=== PATIENT | female | born 1990 | race Caucasian/White ===

== ENCOUNTER 2017-04-04 12:59 | Inpatient (IN) | payer BC, OTHER ==
[~2017-04-04] VITALS: Ht 180.3 cm; Wt 67.6 kg
[2017-04-04 00:12] VITALS: BP 109/59
[2017-04-04] MEDS ORDERED: ONDANSETRON ODT 4 MG TAB.RAPDIS SL PRN (14:00)
[2017-04-04] MEDS ORDERED: ONDANSETRON 4 MG/2 ML VIAL IM PRN (14:00)
[2017-04-04] MEDS ORDERED: HYDROXYZINE PAMOATE 25 MG CAPSULE PO PRN (14:00)
[2017-04-04] MEDS ORDERED: MIRALAX 17 GM POWD.PACK PO PRN (14:00)
[2017-04-04] MEDS ORDERED: MAG HYDROX/AL HYDROX/SIMETH 30 ML LIQUID UDC PO PRN (14:00)
[2017-04-04] MEDS ORDERED: IBUPROFEN 600 MG TABLET PO PRN (14:00)
[2017-04-04] MEDS ORDERED: LORAZEPAM 1 MG TABLET PO PRN ×2 (14:00)
[2017-04-04] MEDS ORDERED: LORAZEPAM 2 MG/1 ML VIAL IM PRN (14:00)
[2017-04-04] MEDS ORDERED: DICYCLOMINE HCL 20 MG TABLET PO PRN (14:00)
[2017-04-04] MEDS ORDERED: LOPERAMIDE HCL 2 MG CAPSULE PO PRN ×2 (14:00)
[2017-04-04] MEDS ORDERED: ACETAMINOPHEN 325 MG TABLET PO PRN (14:00)
[2017-04-04] MEDS ORDERED: MAGNESIUM HYDROXIDE 30 ML LIQUID UDC PO PRN (14:00)
[2017-04-04] MEDS ORDERED: BUPRENORPHINE HCL 2 MG TAB.SUBL SL PRN (14:00)
[2017-04-04] MEDS ORDERED: CLONIDINE HCL 0.1 MG TABLET PO PRN (14:00)
--- NOTE | 2017-04-04 15:15 | NUR ---
PRE ADMISSION Pt received in intake and was dropped off by mother from home. Pt alert and oriented to name, place, and time. Perrla. Skin warm and slightly moist to touch. Respirations even and unlabored. Bilateral hand tremors noted slightly. VS: AZ=905/64, P=95 O2=96% @RA, R=16 T=98.0 PAIN=0. Explained unit rules to pt. No distress noted at this time.
--- NOTE | 2017-04-04 15:20 | NUR ---
ADMISSION Pt received in intake and was dropped off by mother from home. Pt alert and oriented to name, place, and time. Perrla. Skin warm and slightly moist to touch. Respirations even and unlabored. Bilateral hand tremors noted slightly. VS: WL=853/64, P=95 O2=96% @RA, R=16 T=98.0 PAIN=0. Explained unit rules to pt. No distress noted at this time. Pt was seen by Dr. Perez at the intake. Pt with episodes of closing her eyes during conversation. Pt states she has her own place, but her boyfriend lives with her. Pt also stated she is thinking about quitting her job because her current job requires her to work late and she is not able to make it sto AA meetings. Oriented pt to room and unit. Bed on lowest position with side rails x2 up for safety. Call light within reach. No distress noted at this time. Substance hx: heroin IV1/2 gmx4 days ONLY, last used 04/04/17 1/2gm morphine IV 125mg x2 months. last used 03/21/17 dilaudid IV 120 mg x1 month. last used 04/03/17 xanax 0.5-2mg daily x 15 years. last used 04/04/17 2mg. medical hx: sz ( 03/30/17) treatment hx: Francisca 10/13/16 and multiple treatments
[2017-04-04 16:00] VITALS: BP 116/64
[2017-04-04] MEDS ORDERED: NAPR500T6 PO (16:50)
[2017-04-04] MEDS ORDERED: ZOLP10TA6 PO (16:50)
[2017-04-04] MEDS ORDERED: LEVO1TBD3 PO (16:50)
[2017-04-04] MEDS ORDERED: TRAZ300T2 PO (16:50)
[2017-04-04] MEDS ORDERED: SERT100T PO (16:50)
[2017-04-04] MEDS ORDERED: CYAN1TAB43 PO (16:50)
[2017-04-04] MEDS ORDERED: CLON0.1T PO (16:50)
[2017-04-04] MEDS ORDERED: VALA100026 PO (16:50)
[2017-04-04] MEDS ORDERED: KETO10TA2 PO (16:50)
[2017-04-04 16:53] LABS: *URINE HCG, QUAL NEGATIVE (NEGATIVE)
[2017-04-04 17:06] LABS: *AMPHETAMINE, URINE NEGATIVE (NEGATIVE); *BARBITURATE, URINE NEGATIVE (NEGATIVE); *CANNABINOID, URINE NEGATIVE (NEGATIVE); *COCCAINE, URINE NEGATIVE (NEGATIVE); *OPIATE, URINE POSITIVE (NEGATIVE); *PHENCYCLIDINE SCREEN,URINE NEGATIVE (NEGATIVE)
[2017-04-04] MEDS: METHOCARBAMOL 750 MG TABLET PO PRN (17:28)
[2017-04-04] MEDS: LORAZEPAM 1 MG TABLET PO SCH ×2 (17:28→23:57)
[2017-04-04] MEDS: LIDOCAINE 5% PATCH TD SCH ×2 (17:29→17:53)
[2017-04-04 17:32] LABS: BASOPHILS % (AUTO) 0.2 % (0.0-2.0); EOSINOPHILS # (AUTO) 0.1 K/uL (0.0-0.7); HEMATOCRIT 33.9 % (37-47); HEMOGLOBIN 11.2 G/DL (12.0-16.0); LYMPHOCYTES # (AUTO) 2.2 K/UL (0.8-4.8); LYMPHOCYTES % (AUTO) 24.2 % (20.5-51.5); MEAN CORPUSCULAR HEMOGLOBIN 29.3 UUG (27.0-31.0); MEAN CORPUSCULAR HGB CONC 33 g/dL (32.0-37.0); MEAN CORPUSCULAR VOLUME 88.6 FL (81.0-99.0); MONOCYTES # (AUTO) 0.7 K/UL (0.1-1.30); MONOCYTES % (AUTO) 7.6 % (0.0-11.0); NEUTROPHILS # (AUTO) 5.9 K/UL (1.8-8.9); PLATELET COUNT (AUTO) 260 K/UL (150-450); RED BLOOD CELL COUNT(AUTO) 3.82 MIL/UL (4.2-5.4); WHITE BLOOD COUNT (AUTO) 8.9 K/UL (4.0-11.2)
[2017-04-04 17:38] LABS: ETHANOL < 3 MG/DL (0-0)
[2017-04-04 17:43] LABS: ALANINE AMINOTRANSFERASE 55 U/L (14-59); ALKALINE PHOSPHATASE 96 U/L (50-136); ASPARTATE AMINOTRANSFERASE 32 U/L (15-37); BILIRUBIN,TOTAL 0.3 mg/dL (0.2-1.0); CARBON DIOXIDE 32 mmol/L (21-32); CHLORIDE 105 mmol/L (98-107); CREATININE 0.7 mg/dL (0.6-1.3); GLUCOSE 106 mg/dL (74-106); MAGNESIUM 1.8 mg/dL (1.8-2.4); POTASSIUM 3.7 mmol/L (3.5-5.1); UREA NITROGEN, BLOOD 10 mg/dL (7-18)
--- NOTE | 2017-04-04 18:27 | NUR ---
END OF SHIFT Pt 26 y/o female admitted for heroin/ morphine/; dilaudid/ xanax dependence. Pt alert and oriented to name, place, and time. Perrla. Skin warm and dry to touch. Respirations even and unlabored. Bilateral hand tremors noted slightly. Pt with periods of closing eyes during conversation, but easily arousable to name. Pt started on a 5 day ativan taper and will start on a 5 day subutex taper on 04/05/17. cows=7 ciwa=3. Bed on lowest position with side rails x2 up for safety. Call light within reach. No distress noted at this time.
--- NOTE | 2017-04-04 19:08 | NUR ---
Start of shift note Received report from day shift nurse. Pt is a 26 yo female, A+Ox4, presenting to [facility] for Opiate/benzo dependence. Pt has Allergies to Avocado, Haldol, and Mushroom, is on Full code status, and on Regular diet. Pt is on Fall and Seizure precautions. Pt has HX of Seizure. Pt is on 5 day Ativan taper started today, tolerated well, and on 5 day Subutex taper to start tomorrow. No s/s of distress noted at this time. Respirations even and unlabored. Will continue to monitor.
[2017-04-04 20:15] VITALS: BP 101/55
[2017-04-05 00:12] VITALS: BP 109/59
[2017-04-05] MEDS: diphenhydrAMINE 50 MG CAPSULE PO PRN ×2 (01:24→23:05)
--- NOTE | 2017-04-05 01:24 | NUR ---
PRN Benadryl Pt c/o inability to sleep and requested for PRN Benadryl. Medication given and tolerated well. Will reassess within 1 HR. Will continue to monitor.
--- NOTE | 2017-04-05 02:19 | NUR ---
PRN Benadryl Reassessment Medication effective. Pt is resting in bed. No s/s of ASE/distress noted at this time. Respirations even and unlabored. Will continue to monitor.
[2017-04-05 04:33] VITALS: BP 104/50
--- NOTE | 2017-04-05 07:00 | NUR ---
End of shift note Pt is a 26 yo female, A+Ox4, presenting to [facility] for Opiate/benzo dependence. Pt has Allergies to Avocado, Haldol, and Mushroom, is on Full code status, and on Regular diet. Pt is on Fall and Seizure precautions. Pt has HX of Seizure. Pt is on 5 day Ativan taper tolerated well, and on 5 day Subutex taper to start today. Pt was given PRN Jennal @0124. Pt slept for a total of 10 HRS. Last COWS: 1 and Last CIWA: 2 @0400. No s/s of distress noted at this time. Respirations even and unlabored. Will endorse to day shift nurse.
--- NOTE | 2017-04-05 07:35 | NUR ---
START OF SHIFT Pt 26 y/o female admitted for heroin/ morphine/ dilaudid/ xanax dependence. Pt received in room on bed with eyes closed resting, but easily arousable to name. Pt alert and oriented to name, place, and time. Perrla. Skin warm and slightly moist to touch. Respirations even and unlabored. It was reported that pt slept for 10 hours last night. Bed on lowest position with side rails x2 up for safety. Call light within reach. No distress noted at this time.
[2017-04-05 08:35] VITALS: BP 98/64
[2017-04-05] MEDS: BUPRENORPHINE HCL 2 MG TAB.SUBL SL SCH ×4 (09:00→21:32)
[2017-04-05] MEDS ORDERED: 5 DAY TAPER BUPRENORPHINE -SERENITY PROTOCOL SL PRN (09:00)
[2017-04-05] MEDS ORDERED: LORAZEPAM 1 MG TABLET PO SCH (09:00)
[2017-04-05] MEDS: DOCUSATE SODIUM 250 MG CAPSULE PO SCH (09:00)
[2017-04-05] MEDS: LIDOCAINE 5% PATCH TD SCH ×4 (09:00→09:28)
[2017-04-05] MEDS ORDERED: TUBERCULIN,PURIF.PROT.DERIV. 5 TU/0.1 ML TEST ID ONE (09:00)
[2017-04-05] MEDS: METHOCARBAMOL 750 MG TABLET PO PRN ×2 (09:27→18:05)
--- NOTE | 2017-04-05 09:27 | NUR ---
PRN Pt states has BLE aches 02/02. Robaxin po prn per MD order given and tolerated well.
[2017-04-05] MEDS: LORAZEPAM 1 MG TABLET PO SCH ×4 (09:28→21:32)
[2017-04-05] MEDS: MULTIVITAMINS,THERAPEUTIC TABLET PO SCH (09:28)
--- NOTE | 2017-04-05 09:45 | NUR ---
SUBUTEX Pt with cows=4. Pt with c/o moderate body aches, denies any stomach cramps, or stuff nose. Pt states experiences some sweats. Subutex 4mg due at 0900 was held.
--- NOTE | 2017-04-05 10:27 | NUR ---
RAYMUNDO YEUNG Pt observed in room on laying on bed with eyes closed resting, but easily arousable to name. No distress noted at this time.
--- NOTE | 2017-04-05 13:00 | NUR ---
MEDICATIONS HELD Subutex and ativan held. Pt in bed with eyes closed, arousable after raising voice. Respirations even and unlabored. Dr. Perez made aware that medications were held.
[2017-04-05 13:35] VITALS: BP 110/59
--- NOTE | 2017-04-05 14:27 | NUR ---
PRN Pt with cows=12 ciwa=6. Dr. Perez made aware with new orders for subutex 4mg SL x1 and ativan 1 mg po x1 dose, noted and carried out.
[2017-04-05] MEDS ORDERED: LORAZEPAM 1 MG TABLET PO ONE (14:30)
[2017-04-05] MEDS ORDERED: BUPRENORPHINE HCL 2 MG TAB.SUBL SL ONE (14:30)
--- NOTE | 2017-04-05 15:27 | NUR ---
PRN EVAL cows=5. ciwa=2.
--- NOTE | 2017-04-05 17:11 | NUR ---
PRN Pt with c/o generalized body pain 02/02. Motrin po prn per MD order given and tolerated well.
[2017-04-05 17:19] VITALS: BP 121/62
--- NOTE | 2017-04-05 18:06 | NUR ---
PRN Pt with c/o body aches 02/02. Robaxin po prn per MD order given and tolerated well.
--- NOTE | 2017-04-05 18:11 | NUR ---
PRN EVAL Pt still with c/o body aches 02/02.
--- NOTE | 2017-04-05 18:22 | NUR ---
END OF SHIFT Pt 26 y/o female admitted for heroin/ morphine/; dilaudid/ xanax dependence. Pt alert and oriented to name, place, and time. Perrla. Skin warm and dry to touch. Respirations even and unlabored. Bilateral hand tremors noted slightly. Pt with periods of closing eyes during conversation this afternoon. Pt obseved mostly isolative in room throughout the day and did not attend group activity. Bed on lowest position with side rails x2 up for safety. Call light within reach. No distress noted at this time.
--- NOTE | 2017-04-05 19:05 | NUR ---
Start of Shift Patient Received. Patient is in activities room participating in a group meeting. Patient is a 26 year old female admitted on 04/04/17 for Opiate Dependence under the care of Dr. Perez. Patient is currently receiving a 5 day Ativan and 5 day Subutex taper. Patient verbalizes allergies to Haldol, Avocado, and mushrooms, wishes to be full code, following a regular diet, placed on fall ands seizure precautions, skin noted intact. Past medical history noted as history of seizure 03/30/17. Per endorsement, patient was given 1x dose of Subutex and 1x dose of Ativan 1mg for COWS of 12. Patient was also PRN RObaxin x2 doses with medication noted to be effective. Patients last noted CIWA 5 and COWS 8. Al needs attended to promptly. Will continue plan of care as ordered.
[2017-04-05 20:45] VITALS: BP 105/65
[2017-04-05] MEDS: TRAZODONE 100 MG TABLET PO SCH (21:32)
--- NOTE | 2017-04-05 23:05 | NUR ---
PRN Medication Administration Patient verbalized inability of falling asleep. All non-pharmacological interventions noted not effective. PRN Benadryl administered as per order. Will continue to monitor.
--- NOTE | 2017-04-06 00:05 | NUR ---
PRN Medication Reassessment Patient noted in bed sleeping. Vitals rendered and patient was able to fall back asleep with no complications. PRN Benadryl noted to be effective. will continue to monitor.
[2017-04-06 00:10] VITALS: BP 107/64
[2017-04-06 04:00] VITALS: BP 107/63
[2017-04-06 06:07] LABS: HEPATITIS B SURFACE AG Negative (Negative)
--- NOTE | 2017-04-06 07:03 | NUR ---
End of Shift Patient is in bed sleeping. Breathing even and non labored. No signs of pain or discomfort noted. Patent is a 26 year old female admitted on 04/04/17 for Opiate Dependence and is currently receiving a 5 day Ativan and 5 day Subutex taper. Patient was given PRN Benadryl with medication noted to be effective. Patient noted to sleep a total of 6 hours. All needs attended to promptly. Will endorse to continue to monitor accordingly.
--- NOTE | 2017-04-06 07:34 | NUR ---
START OF SHIFT Pt 26 y/o female admitted for heroin/ morphine/ dilaudid/ xanax dependence. Pt received in room on bed with eyes closed resting, but easily arousable to name. Pt alert and oriented to name, place, and time. Perrla. Skin warm and slightly moist to touch. Respirations even and unlabored. It was reported that pt slept for 6 hours last night. Bed on lowest position with side rails x2 up for safety. Call light within reach. No distress noted at this time.
[2017-04-06 08:00] VITALS: BP 90/52
[2017-04-06] MEDS: MULTIVITAMINS,THERAPEUTIC TABLET PO SCH (08:55)
[2017-04-06] MEDS: METHOCARBAMOL 750 MG TABLET PO PRN (08:55)
[2017-04-06] MEDS: LORAZEPAM 1 MG TABLET PO SCH ×3 (08:56→21:02)
[2017-04-06] MEDS: BUPRENORPHINE HCL 2 MG TAB.SUBL SL SCH ×3 (08:57→21:02)
[2017-04-06] MEDS: DOCUSATE SODIUM 250 MG CAPSULE PO SCH (09:00)
[2017-04-06] MEDS: LIDOCAINE 5% PATCH TD SCH ×2 (09:00)
[2017-04-06] MEDS ORDERED: SERTRALINE HCL 100 MG TABLET PO SCH ×2 (09:00→21:00)
--- NOTE | 2017-04-06 09:03 | NUR ---
PRN Pt states has body aches 6/10. Robaxin po prn per MD order given and tolerated well.
--- NOTE | 2017-04-06 10:03 | NUR ---
PRN MAHOGANYAL Pt observed in bed with eyes closed resting, but easily arousable to name. No distress noted at this time.
[2017-04-06] MEDS ORDERED: BUPRENORPHINE HCL 2 MG TAB.SUBL SL ONE (12:00)
[2017-04-06] MEDS ORDERED: LORAZEPAM 1 MG TABLET PO ONE (12:00)
[2017-04-06] MEDS ORDERED: KETOROLAC TROMETHAMINE 30 MG INJ IM PRN (12:00)
--- NOTE | 2017-04-06 12:24 | NUR ---
ONE TIME DOSE Pt evaluated by MD with new orders for subutex 4mg po and ativan 1mg po x1 dose, noted and carried out.
[2017-04-06 12:54] VITALS: BP 102/62
--- NOTE | 2017-04-06 13:47 | NUR ---
Therapist prompted client about group times. Client stated she would try to go tomorrow if she feels better.
[2017-04-06 17:12] VITALS: BP 95/63
--- NOTE | 2017-04-06 18:13 | NUR ---
END OF SHIFT Pt 26 y/o female admitted for heroin/ morphine/ dilaudid/ xanax dependence. Pt alert and oriented to name, place, and time. Perrla. Skin warm and dry to touch. Respirations even and unlabored. Bilateral hand tremors noted slightly. Pt observed mostly isolative in room throughout the day but did attend group activity. Bed on lowest position with side rails x2 up for safety. Call light within reach. No distress noted at this time.
--- NOTE | 2017-04-06 19:00 | NUR ---
Start of Shift Patient Received. Patient is in activities room participating in a group meeting. Patient is a 26 year old female admitted on 04/04/17 for Opiate Dependence under the care of Dr. Perez. Patient is currently receiving a 5 day Ativan and 5 day Subutex taper. Patient verbalizes allergies to Haldol, Avocado, and mushrooms, wishes to be full code, following a regular diet, placed on fall and seizure precautions, skin noted intact. Past medical history noted as seizure on 03/30/17. Per endorsement, Patient was seen by MD with new order for x1 additional does of Subutex and 1x additional dose of Ativan 1mg. Patient was also given PRN Robaxin with medication noted to be effective. Patients last noted CIWA 3 and COWS 6. All needs attended to promptly. Will continue plan of care as ordered.
[2017-04-06 20:54] VITALS: BP 117/68
[2017-04-06] MEDS: TRAZODONE 100 MG TABLET PO SCH (21:02)
--- NOTE | 2017-04-06 21:10 | NUR ---
PRN Medication Administration Patient is verbalizing increased chills and anxiety. All non pharmacological interventions noted to be note effective. PRN Clonidine 0.1mg administered as per order. Will continue to monitor.
--- NOTE | 2017-04-06 22:10 | NUR ---
PRN Medication Reassessment Patient is in bed sleeping. Breathing even and non labored. No signs of pain or discomfort noted. Patient was given PRN Clonidine for anxiety and chills with medication noted to be effective. Patient continue to sleep well with no complications noted.
[2017-04-07 00:21] VITALS: BP 109/54
[2017-04-07 04:00] VITALS: BP 102/55
--- NOTE | 2017-04-07 07:05 | NUR ---
End of Shift Patient is in bed sleeping. Breathing even and non labored. No signs of pain or discomfort noted. Patent is a 26 year old female admitted on 04/04/17 for Opiate Dependence and continues on a 5 day Ativan and 5 day Subutex taper. Patient was given PRN Clonidine for increased anxiety and chills with medication noted to be effective. Patient noted to sleep a total of 6 hours. All needs attended to promptly. Will endorse to continue to monitor accordingly.
--- NOTE | 2017-04-07 07:12 | NUR ---
Start of Shift Endorsement received from nightshift nurse. PT is a 26 y/o female admitted for Heroin and Xanax dependence. Pt has been placed on a 5 day Ativan and 5 day Subutex taper. Pt is tolerating the taper and moderately withdrawing AEB COWS 7, CIWA 4 at midnight. Pt received PRN Clonidine. PT reports sleeping 9 hours. VS WNL. Full Code. . PT is alert and oriented x4. Pt is in STABLE condition at this time. Remains compliant with medication and diet regimen. All needs have been met, All safety measures in place per hospital policy. Bed in lowest position, side rails up x2, call-light within reach. Will continue to monitor
[2017-04-07 08:00] VITALS: BP 106/55
[2017-04-07] MEDS: MULTIVITAMINS,THERAPEUTIC TABLET PO SCH (08:55)
[2017-04-07] MEDS: LORAZEPAM 1 MG TABLET PO SCH ×3 (08:55→21:41)
[2017-04-07] MEDS ORDERED: BUPRENORPHINE HCL 2 MG TAB.SUBL SL SCH (09:00)
[2017-04-07] MEDS ORDERED: ETHINYL ESTRADIOL PO SCH ×2 (09:00→22:00)
[2017-04-07] MEDS ORDERED: LEVONORGESTREL PO SCH ×2 (09:00→22:00)
[2017-04-07] MEDS ORDERED: LORAZEPAM 1 MG TABLET PO SCH ×2 (09:00→15:00)
[2017-04-07 12:00] VITALS: BP 95/60
[2017-04-07] MEDS: BUPRENORPHINE HCL 2 MG TAB.SUBL SL SCH ×2 (14:39→21:42)
[2017-04-07] MEDS: GABAPENTIN 300 MG CAPSULE PO SCH ×2 (14:46→21:42)
[2017-04-07] MEDS: BACLOFEN 10 MG TABLET PO SCH ×2 (14:46→21:42)
[2017-04-07 16:00] VITALS: BP 121/70
--- NOTE | 2017-04-07 18:44 | NUR ---
End of Shift Endorsement given to nightshift nurse. PT is a 26 y/o female admitted for Heroin and Xanax dependence. Pt has been placed on a 5 day Ativan and 5 day Subutex taper. Pt is tolerating the taper and mildly withdrawing AEB COWS 3, CIWA 3 at 1600. Pt reports readiness for discharge and sobriety. PT has been educated on S/E of medications and withdrawals. Educated pt on diet regimen and encouraged to drink more fluids. Pt did not receive any PRN medications. Intake:2200ml, Void x3, BM x0. Pt participated in groups and activities. VS WNL. Full Code. . PT is alert and oriented x4. Pt is in STABLE condition at this time. Remains compliant with medication and diet regimen. All needs have been met, All safety measures in place per hospital policy. Bed in lowest position, side rails up x2, call-light within reach. Will continue to monitor
--- NOTE | 2017-04-07 19:00 | NUR ---
Start of Shift Patient Received. Patient is in activities room participating in a group meeting. Patient is a 26 year old female admitted on 04/04/17 for Opiate Dependence and is currently receiving a 5 day Ativan and 5 day Subutex taper. Patient verbalizes allergies to Haldol, Avocado, and mushrooms, wishes to be full code, following a regular diet, placed on fall and seizure precautions, skin noted intact. Past medical history noted as seizure on 03/30/17. Per endorsement, No PRN medication administered. Patients last noted CIWA 3 and COWS 3. All needs attended to promptly. Will continue plan of care as ordered.
[2017-04-07 20:30] VITALS: BP_SYST 111; BP_DIAS 64; BP_DIAS 74
[2017-04-07] MEDS: CLONIDINE HCL 0.2 MG TABLET PO SCH (21:41)
[2017-04-07] MEDS: SERTRALINE HCL 100 MG TABLET PO SCH (21:42)
[2017-04-07] MEDS: TRAZODONE 100 MG TABLET PO SCH (21:42)
[2017-04-08 00:36] VITALS: BP 99/59
[2017-04-08 04:00] VITALS: BP 100/54
--- NOTE | 2017-04-08 07:10 | NUR ---
End of Shift Patient is in bed sleeping. Breathing even and non labored. No signs of pain or discomfort noted. Patent is a 26 year old female admitted on 04/04/17 for Opiate Dependence and continues on a 5 day Ativan and 5 day Subutex taper. No PRN Medications. Patient noted to sleep a total of 6 hours. All needs attended to promptly. Will endorse to continue to monitor accordingly.
[2017-04-08 08:00] VITALS: BP 102/58
--- NOTE | 2017-04-08 08:50 | NUR ---
PT ASSESSMENT Pt was at the nurses station when she reported feeling weak and light headed, pt was assisted to the room by staff V/S were taken and as follows: 105/70, 75 heart rate, 16 RR, SpO2 is 97% RA. Pt is on a 1:1 for safety until further evaluation by MD. Pt reports feeling "fine" denies dizziness at this time. Will be monitored closely.
[2017-04-08] MEDS: GABAPENTIN 300 MG CAPSULE PO SCH ×3 (08:56→22:02)
[2017-04-08] MEDS: BUPRENORPHINE HCL 2 MG TAB.SUBL SL SCH ×3 (08:57→22:02)
[2017-04-08] MEDS: BACLOFEN 10 MG TABLET PO SCH ×3 (08:57→22:01)
[2017-04-08] MEDS: MULTIVITAMINS,THERAPEUTIC TABLET PO SCH (08:57)
[2017-04-08] MEDS: LORAZEPAM 1 MG TABLET PO SCH ×2 (08:57→22:03)
[2017-04-08 12:00] VITALS: BP 115/64
--- NOTE | 2017-04-08 12:01 | NUR ---
Start of Shift Endorsement received from nightshift nurse. PT is a 26 y/o female admitted for Heroin and Xanax dependence. Pt has been placed on a 5 day Ativan and 5 day Subutex taper. Pt is tolerating the taper and moderately withdrawing AEB COWS 6, CIWA 4 at 0400. Pt did not receive any PRN medications. PT reports sleeping 7 hours. Pt remains cooperative. PT has been placed on Room restrictions until farther evaluation. VS WNL. Full Code. . PT is alert and oriented x4. Pt is in STABLE condition at this time. Remains compliant with medication and diet regimen. All needs have been met, All safety measures in place per hospital policy. Bed in lowest position, side rails up x2, call-light within reach. Will continue to monitor
[2017-04-08 16:00] VITALS: BP 88/55
--- NOTE | 2017-04-08 18:52 | NUR ---
End of Shift Endorsement given to nightshift nurse. PT is a 26 y/o female admitted for Heroin and Xanax dependence. Pt has been placed on a 5 day Ativan and 5 day Subutex taper. Pt is tolerating the taper and mildly withdrawing AEB COWS 3, CIWA 3 at 1600. PT has been placed on 1:1 for reported weakness and dizziness. Dr. Perez is aware, pt will be re-evaluated again on 04/09/17. Pt reports wanting to be discharge despite showing signs of withdrawal. Pt has been encouraged to stay and complete her taper prior to discharge . Reinforced education on S/E of medications and withdrawals. Educated pt on diet regimen and encouraged to drink more fluids. Pt did not receive any PRN medications. Intake:1850ml, Void x5, BM x0. Pt participated in groups and activities. VS WNL. Full Code. . PT is alert and oriented x4. Pt is in STABLE condition at this time. Remains compliant with medication and diet regimen. All needs have been met, All safety measures in place per hospital policy. Bed in lowest position, side rails up x2, call-light within reach. Will continue to monitor
--- NOTE | 2017-04-08 19:05 | NUR ---
Start of shift note Received report from day shift nurse. Pt is a 26 yo female, A+Ox4, [facility]zo [facility]. Pt has Allergies to Avocado, Haldol, and Mushroom, is on Full code status, and on Regular diet. Pt is on Fall and Seizure precautions. Pt is on 1:1 sitter for unsteady gait. Pt has HX of Seizure. Pt is on 5 day Ativan taper and 5 day Subutex taper, tolerated well. No s/s of distress noted at this time. Respirations even and unlabored. Will continue to monitor.
--- NOTE | 2017-04-08 19:57 | NUR ---
Pharmacy and MD communication: Notified pharmacy of pt's own Quasense control pill. MD made aware with order to discontinue medication. Order noted and carried out. Pt made aware of discontinued medication. Pt verbalized understanding.
[2017-04-08 20:33] VITALS: BP 101/61
[2017-04-08] MEDS ORDERED: LORAZEPAM 1 MG TABLET PO SCH (21:00)
[2017-04-08] MEDS: TRAZODONE 100 MG TABLET PO SCH (22:02)
[2017-04-08] MEDS: SERTRALINE HCL 100 MG TABLET PO SCH (22:03)
[2017-04-08] MEDS: CLONIDINE HCL 0.2 MG TABLET PO SCH (22:03)
[2017-04-09 00:55] VITALS: BP 108/59
[2017-04-09 04:11] VITALS: BP 102/58
--- NOTE | 2017-04-09 07:00 | NUR ---
End of shift note Pt is a 26 yo female, A+Ox4, presenting to [facility] for Opiate/benzo dependence. Pt has Allergies to Avocado, Haldol, and Mushroom, is on Full code status, and on Regular diet. Pt is on Fall and Seizure precautions. Pt has HX of Seizure. Pt is on 5 day Ativan taper and 5 day Subutex taper tolerated well. Pt slept for a total of 8 HRS. Last COWS: 2 and Last CIWA: 2 @0400. No s/s of distress noted at this time. Respirations even and unlabored. Will endorse to day shift nurse.
--- NOTE | 2017-04-09 07:55 | NUR ---
START OF SHIFT: RECEIVED PT A/O X 4. SHE REPORTS SOME ANXIETY, BODY ACHES AND RESTLESSNESS. COWS 3 CIWA 1. ATIVAN/SUBUTEX TAPER IN PROGRESS TO MANAGE S/S OF W/D. 1:1 SITTER AT BEDSIDE FOR SAFETY. SHE STATES SHE IS SLEEPING AND EATING WELL. ENCOURAGED HER TO ATTEND GROUPS TO IMPROVE COPING SKILLS AND PREVENT RELAPSE. WILL CONTINUE TO MONITOR AND OFFER SUPPORT.
[2017-04-09 08:00] VITALS: BP 90/60
[2017-04-09] MEDS ORDERED: LORAZEPAM 1 MG TABLET PO SCH (09:00)
[2017-04-09] MEDS ORDERED: BUPRENORPHINE HCL 2 MG TAB.SUBL SL SCH (09:00)
[2017-04-09] MEDS: MULTIVITAMINS,THERAPEUTIC TABLET PO SCH (10:08)
[2017-04-09] MEDS: GABAPENTIN 300 MG CAPSULE PO SCH ×3 (10:09→21:17)
[2017-04-09] MEDS: BACLOFEN 10 MG TABLET PO SCH ×3 (10:09→21:18)
--- NOTE | 2017-04-09 11:46 | NUR ---
1:1 SITTER DISCONTINUED PER MD. WILL CONTINUE TO MONITOR AND OFFER SUPPORT.
[2017-04-09 12:00] VITALS: BP 111/65
[2017-04-09 15:01] LABS: *AMPHETAMINE, URINE NEGATIVE (NEGATIVE); *BARBITURATE, URINE NEGATIVE (NEGATIVE); *CANNABINOID, URINE NEGATIVE (NEGATIVE); *COCCAINE, URINE NEGATIVE (NEGATIVE); *OPIATE, URINE NEGATIVE (NEGATIVE); *PHENCYCLIDINE SCREEN,URINE NEGATIVE (NEGATIVE)
[2017-04-09 16:00] VITALS: BP 117/69
--- NOTE | 2017-04-09 18:27 | NUR ---
END OF SHIFT: PT COMPLETED TAPERS AND STATES DETOX MEDS WERE EFFECTIVE. LAST COWS 2 CIWA 1. NO PRNS REQUIRED. SHE ATTENDED GROUPS AND INTERACTED WITH PEERS. DISCHARGE PLANNING IN PROGRESS FOR TOMORROW. UDS COLLECTED. WILL PASS SHIFT REPORT TO ONCOMING NIGHT NURSE.
--- NOTE | 2017-04-09 19:15 | NUR ---
Start of shift note Received report from day shift nurse. Pt is a 26 yo female, A+Ox4, presenting to [facility] for Opiate/benzo dependence. Pt has Allergies to Avocado, Haldol, and Mushroom, is on Full code status, and on Regular diet. Pt is on Fall and Seizure precautions. Pt is on 1:1 sitter for unsteady gait. Pt has HX of Seizure. Pt has completed 5 day Ativan taper and 5 day Subutex taper, tolerated well, and is due for discharge tomorrow. No s/s of distress noted at this time. Respirations even and unlabored. Will continue to monitor. Addendum: 04/09/17 at 2253 by RICHAR SHRESTHA LVN Pt is no longer on 1:1 sitter
[2017-04-09 20:36] VITALS: BP 107/68
[2017-04-09] MEDS: CLONIDINE HCL 0.2 MG TABLET PO SCH (21:17)
[2017-04-09] MEDS: TRAZODONE 100 MG TABLET PO SCH (21:17)
[2017-04-09] MEDS: SERTRALINE HCL 100 MG TABLET PO SCH (21:17)
[2017-04-09] MEDS ORDERED: IBUP-1955 PO (23:52)
[2017-04-09] MEDS ORDERED: BACL10TA PO (23:52)
[2017-04-09] MEDS ORDERED: GABA-534 PO (23:52)
[2017-04-10 00:55] VITALS: BP 110/71
[2017-04-10 04:33] VITALS: BP 105/68
--- NOTE | 2017-04-10 06:53 | NUR ---
End of shift note Pt is a 26 yo female, A+Ox4, presenting to [facility] for Opiate/benzo dependence. Pt has Allergies to Avocado, Haldol, and Mushroom, is on Full code status, and on Regular diet. Pt is on Fall and Seizure precautions. Pt has HX of Seizure. Pt has completed 5 day Ativan taper and 5 day Subutex taper tolerated well, and is due for discharge today. Pt slept for a total of 6 HRS. Last COWS: 2 and Last CIWA: 1 @0400. No s/s of distress noted at this time. Respirations even and unlabored. Will endorse to day shift nurse.
--- NOTE | 2017-04-10 07:28 | NUR ---
START OF SHIFT NOTE: Received report from rn night nurse. Pt is a 26 yo female, admitted 8 to for Opiate/benzo dependence. Pt to be discharged this AM. Pt is alert and oriented X4. Color good, skin warm and dry. Respirations even and unlabored. Resting in bed. safety precautions observed. Call light within reach.
[2017-04-10] MEDS: BACLOFEN 10 MG TABLET PO SCH (08:01)
[2017-04-10] MEDS: MULTIVITAMINS,THERAPEUTIC TABLET PO SCH (08:01)
[2017-04-10] MEDS: GABAPENTIN 300 MG CAPSULE PO SCH (08:01)
[2017-04-10 08:39] VITALS: BP 110/60
--- NOTE | 2017-04-10 08:40 | NUR ---
VSS Pt signed discharge papers and medication bag.
--- NOTE | 2017-04-10 09:45 | NUR ---
Pt discharged in stable condition with all valuables, belongings and home medications. Denies SI/HI. To home via private car
== END 2017-04-10 09:05 | disposition home or self-care (01) | DRG 895 ==
LOC: SRC 12:59
PROVIDERS: ADMIT Internal Medicine; ATTEND Internal Medicine
PROC: HZ2ZZZZ Detoxification Services for Substance Abuse Treatment (ICD-10-PCS; principal; 2017-04-04)
PROC: HZ31ZZZ Individual Counseling for Substance Abuse Treatment, Behavioral (ICD-10-PCS; 2017-04-06)
PROC: HZ41ZZZ Group Counseling for Substance Abuse Treatment, Behavioral (ICD-10-PCS; 2017-04-06)
DX: F11.23 Opioid dependence with withdrawal (principal); I95.89 Other hypotension; M41.9 Scoliosis, unspecified; F32.9 Major depressive disorder, single episode, unspecified; F41.9 Anxiety disorder, unspecified; F13.230 Sedative, hypnotic or anxiolytic dependence with withdrawal, uncomplicated; G89.29 Other chronic pain; G47.00 Insomnia, unspecified; Z81.8 Family history of other mental and behavioral disorders; Z79.899 Other long term (current) drug therapy; Z88.8 Allergy status to other drugs, medicaments and biological substances; Z91.018 Allergy to other foods; F17.210 Nicotine dependence, cigarettes, uncomplicated; Z87.828 Personal history of other (healed) physical injury and trauma; Z91.81 History of falling; R55 Syncope and collapse; D64.9 Anemia, unspecified
CPT/HCPCS: 36415; 70030-TC; 80307; 80346; 80361; 83735; 84703; 85025; 86580; 86592; 86705; 86803; 87340; 87806; 93005; 93307; A4663; G0480; Q0163

== ENCOUNTER 2017-08-31 | Inpatient (IN) | payer BC, OTHER ==
[~2017-08-31] VITALS: Ht 180.3 cm; Wt 70.8 kg
[~2017-08-31] MED LIST: BACL10TA PO; CLON0.1T PO; CYAN1TAB43 PO; GABA-534 PO; IBUP-1955 PO; LEVO1TBD3 PO; SERT100T PO; TRAZ300T2 PO; VALA100026 PO
[2017-08-31] MEDS ORDERED: ACETAMINOPHEN 325 MG TABLET PO PRN (00:30)
[2017-08-31] MEDS ORDERED: DICYCLOMINE HCL 20 MG TABLET PO PRN (00:30)
[2017-08-31] MEDS ORDERED: CLONIDINE HCL 0.3 MG TABLET PO PRN (00:30)
[2017-08-31] MEDS ORDERED: DIAZEPAM 10 MG TABLET PO PRN ×2 (00:30)
[2017-08-31] MEDS ORDERED: BUPRENORPHINE HCL 2 MG TAB.SUBL SL PRN (00:30)
[2017-08-31] MEDS ORDERED: MIRALAX 17 GM POWD.PACK PO PRN (00:30)
[2017-08-31] MEDS ORDERED: ONDANSETRON ODT 4 MG TAB.RAPDIS SL PRN (00:30)
[2017-08-31] MEDS ORDERED: METHOCARBAMOL 750 MG TABLET PO PRN (00:30)
[2017-08-31] MEDS ORDERED: LOPERAMIDE HCL 2 MG CAPSULE PO PRN ×2 (00:30)
[2017-08-31] MEDS ORDERED: diphenhydrAMINE 50 MG CAPSULE PO PRN (00:30)
[2017-08-31] MEDS ORDERED: LORAZEPAM 2 MG/1 ML VIAL IM PRN (00:30)
[2017-08-31] MEDS ORDERED: DIAZEPAM 5 MG TABLET PO PRN (00:30)
[2017-08-31] MEDS ORDERED: MAGNESIUM HYDROXIDE 30 ML LIQUID UDC PO PRN (00:30)
[2017-08-31] MEDS ORDERED: ONDANSETRON 4 MG/2 ML VIAL IM PRN (00:30)
[2017-08-31] MEDS ORDERED: MAG HYDROX/AL HYDROX/SIMETH 30 ML LIQUID UDC PO PRN (00:30)
[2017-08-31] MEDS ORDERED: CLONIDINE HCL 0.1 MG TABLET PO PRN (00:30)
[2017-08-31] MEDS ORDERED: IBUPROFEN 600 MG TABLET PO PRN (00:30)
[2017-08-31 00:45] VITALS: BP 120/78
--- NOTE | 2017-08-31 00:45 | NUR ---
Pre-Admission Patient was seen down in intake office. Patient is a 27 year old female arriving from [facility] to receive treatment for her Opiate and Benzo Use. Patient appears to be under the influence as evidence of speaking with eyes closed. Vital signs noted 120/78, 89, 18, 97.9, 99, 0/10. Home medication policy and narcotic disposal reviewed with patient. Patient verbalized understanding. Will continue with admission assessment on unit.
--- NOTE | 2017-08-31 01:12 | NUR ---
Skin and body Check Patient arrived on unit 0103 with BODY AND FENDER WORKER. Patient is alert and ambulatory with no assistance needs. Patient was escorted into designated room for body check and skin check. Patient verbalized to female BODY AND FENDER WORKER that she dose not consent to body search due to personal reasons. BODY AND FENDER WORKER then reeducated patient of policies. Patient again disagreed to body check and skin check. Patient was then escorted back to intake office with female BODY AND FENDER WORKER. Will continue to monitor.
[2017-08-31] MEDS ORDERED: DIAZEPAM 10 MG TABLET PO ONE (01:30)
[2017-08-31] MEDS ORDERED: CLONIDINE HCL 0.1 MG TABLET PO ONE (01:30)
--- NOTE | 2017-08-31 02:21 | NUR ---
Admission Patient noted to agree to consent for body search and skin search and arrived on the unit at 0221. Patient was escorted on to unit by female FINANCIAL REPORTING ANALYST. Both primary nurse and FINANCIAL REPORTING ANALYST present while in room due to patient noted to be very labile while in intake office. Per intake and female FINANCIAL REPORTING ANALYST patient was noted to frequently shift and noted placing hand down her pants. Patient was asked multiple times per FINANCIAL REPORTING ANALYST to remove any possible contraband. On multiple occasions patient denied having any contraband on her while in intake office. No visible contraband noted during body search. Patient is a 27 year old female arriving from [facility] to be admitted to [facility] for her Opiate and Benzo Dependence. Patient was able to provide Urine drug screen while in room. Patient verbalizes allergies to Avocado, Haloperidol, and mushrooms. Patient wishes to be full code, following a regular diet, placed on fall and seizure precautions, and skin noted intact. Patient was pre-concerned with receiving proper sleep medications. Encouraged patient not to focus on medications and Psychiatrist would be made aware of sleep medications. Patient is alert and oriented x4. Breathing is even and non labored with no signs of SOB. No pain or discomfort verbalized. BUE and BLE noted to be WNL with no edema noted. Lung sounds clear with no cough noted. Patient verbalizes past medical history of anxiety, depression, Scoliosis, Bulging Lumbar discs of L1-L5, History of Seizures (mar 2017). Patient denies any suicidal ideations. She describes her usage as: 1. Heroin, Since the age of 16, using 2mg IV daily with last use noted on 08/30/17 2. Dilaudid, since 01/2016, using 120mg IV Daily, with last use noted 08/27/17 3. Roxycodone, Since 2013, using 1000mg IV Daily, with last use noted 08/27/17 4. Xanax, Since the age of 11, using 2mg Daily PO, last use noted 08/30/17 5. Xanax ER, Since the age of 11, using 2mg daily PO, last use noted 08/30/17 6. Klonopin, Since 2015, using 2mg TID PO, last use noted 08/30/17 7. Ambien, Since 2015, using 10mg QHS with last use noted 08/29/17 Patient was noted verbalizing Im only here to get off the heroin, Dilaudid, and Roxycodone. I want to continue using the Benzos and I will. I dont care what anyone says. I need it. Explained to patient the policies and procedures of [facility]. Patient verbalized understanding and but seemed to be very focused on only detoxing of the substances she chooses. Patient explains her signs and symptoms of withdrawal as "really bad anxiety, restlessness, body aches, cant sleep, hot and cold sweats" Patient currently lives alone and is unemployed. Admission CIWA noted to be 6 and COWS 4. Medications ordered by MD will administer accordingly. Will continue plan of care as ordered.
[2017-08-31 02:30] VITALS: BP 121/77
[2017-08-31 03:25] LABS: *AMPHETAMINE, URINE NEGATIVE (NEGATIVE); *BARBITURATE, URINE NEGATIVE (NEGATIVE); *CANNABINOID, URINE POSITIVE (NEGATIVE); *COCCAINE, URINE NEGATIVE (NEGATIVE); *OPIATE, URINE POSITIVE (NEGATIVE); *PHENCYCLIDINE SCREEN,URINE NEGATIVE (NEGATIVE)
--- NOTE | 2017-08-31 03:30 | NUR ---
Contraband noted/AMA Patient was noted by FIRE PROTECTION EQUIPMENT TECHNICIAN trying to hide a plastic bag underneath patients dresser. Plastic bag obtained by Primary nurse with CN and FIRE PROTECTION EQUIPMENT TECHNICIAN all present. Bag noted with a black riped glove and approx 30-35 of unknown tabs. When asked patient to explain her actions patient verbalized its my Ambien, Xanax, and Trazodone. I dont want to be off of them. Im just going to leave AMA. Unknown medication obtained by CN. Patient was educated on risks and consequences of leaving AMA. Patient was able to verbalize understanding and still requests to leave AMA. Both Primary Nurse and Charge Nurse spoke with patient in hopes to redirect patient but patient again verbalized of wanting to leave AMA. Patient denies any suicidal or homicidal ideations. Skin noted intact. Patient was given a list of community resources. All belongings returned to patient. Patient left the facility on 08/30/17 at 0415 in distress.
[2017-08-31] MEDS ORDERED: GABAPENTIN 300 MG CAPSULE PO SCH (09:00)
[2017-08-31] MEDS ORDERED: PATIENT MAY USE OWN MED- MD OK PO SCH (09:00)
[2017-08-31] MEDS ORDERED: DIAZEPAM 10 MG TABLET PO SCH (09:00)
[2017-08-31] MEDS ORDERED: BUPRENORPHINE HCL 2 MG TAB.SUBL SL SCH (09:00)
[2017-09-01] MEDS ORDERED: BUPRENORPHINE HCL 2 MG TAB.SUBL SL SCH (09:00)
[2017-09-01] MEDS ORDERED: DIAZEPAM 10 MG TABLET PO SCH (09:00)
[2017-09-01] MEDS ORDERED: TUBERCULIN,PURIF.PROT.DERIV. 5 TU/0.1 ML TEST ID ONE (09:00)
[2017-09-02] MEDS ORDERED: DIAZEPAM 5 MG TABLET PO SCH (09:00)
[2017-09-02] MEDS ORDERED: BUPRENORPHINE HCL 2 MG TAB.SUBL SL SCH ×2 (09:00→15:00)
[2017-09-03] MEDS ORDERED: BUPRENORPHINE HCL 2 MG TAB.SUBL SL SCH (09:00)
[2017-09-03] MEDS ORDERED: DIAZEPAM 5 MG TABLET PO SCH (09:00)
[2017-09-04] MEDS ORDERED: BUPRENORPHINE HCL 2 MG TAB.SUBL SL SCH (09:00)
[2017-09-04] MEDS ORDERED: DIAZEPAM 5 MG TABLET PO SCH (09:00)
== END 2017-08-31 04:15 | disposition left against medical advice (07) | DRG 894 ==
LOC: SRC
PROVIDERS: ADMIT Internal Medicine; ATTEND Internal Medicine
DX: F11.229 Opioid dependence with intoxication, unspecified (principal); F13.229 Sedative, hypnotic or anxiolytic dependence with intoxication, unspecified; F17.210 Nicotine dependence, cigarettes, uncomplicated; F41.1 Generalized anxiety disorder; F43.10 Post-traumatic stress disorder, unspecified; G47.00 Insomnia, unspecified; F32.9 Major depressive disorder, single episode, unspecified; G89.29 Other chronic pain; Z91.89 Other specified personal risk factors, not elsewhere classified
CPT/HCPCS: 80307; 80346; 80349; 80361